=== PATIENT | male | born 1995 | race Two or more races ===

== ENCOUNTER 2018-10-26 13:20 | Emergency (ER) | payer OTHER ==
[~2018-10-26] VITALS: Ht 177.8 cm; Wt 116.6 kg
[2018-10-26 17:01] VITALS: BP 134/71
== END 2018-10-26 17:00 | disposition home or self-care (01) ==
LOC: ED 13:20
DX: S61.217A Laceration without foreign body of left little finger without damage to nail, initial encounter (principal); W45.8XXA Other foreign body or object entering through skin, initial encounter; Y93.89 Activity, other specified; Y92.096 Garden or yard of other non-institutional residence as the place of occurrence of the external cause; Y99.8 Other external cause status
CPT/HCPCS: J2001

== ENCOUNTER 2019-02-16 23:49 | Emergency (ER) | payer OTHER ==
[~2019-02-16] VITALS: Ht 175.3 cm; Wt 116.1 kg
[2019-02-16 23:55] VITALS: Ht 175.3 cm; Wt 116.1 kg
[2019-02-17 01:15] VITALS: BP 127/68
== END 2019-02-17 01:15 | disposition home or self-care (01) ==
LOC: ED 23:49
DX: S39.012A Strain of muscle, fascia and tendon of lower back, initial encounter (principal); J45.909 Unspecified asthma, uncomplicated; V29.9XXA Motorcycle rider (driver) (passenger) injured in unspecified traffic accident, initial encounter; Y93.I9 Activity, other involving external motion; Y92.413 State road as the place of occurrence of the external cause; Y99.8 Other external cause status

== ENCOUNTER 2021-01-06 01:18 | Emergency (ER) | payer SELFPAY ==
[~2021-01-06] VITALS: Ht 175.3 cm; Wt 103.0 kg
[2021-01-06 01:26] VITALS: Ht 175.3 cm; Wt 103.0 kg
[2021-01-06] MEDS ORDERED: [UNRECOGNIZED DRUG - OTHER] TOP (06:08)
[2021-01-06] MEDS ORDERED: MOT800 PO (06:08)
[2021-01-06 06:24] VITALS: BP 135/77
== END 2021-01-06 06:24 | disposition home or self-care (01) ==
LOC: ED 01:18
DX: S01.81XA Laceration without foreign body of other part of head, initial encounter (principal); S01.01XA Laceration without foreign body of scalp, initial encounter; J45.909 Unspecified asthma, uncomplicated; W22.8XXA Striking against or struck by other objects, initial encounter; Z65.4 Victim of crime and terrorism; Y93.89 Activity, other specified; Y92.89 Other specified places as the place of occurrence of the external cause; Y99.8 Other external cause status
CPT/HCPCS: 90715; J2001